=== PATIENT | female | born 1950 | race Hispanic/Latino ===

== ENCOUNTER 2021-07-29 15:38 | Emergency (ER) | payer MEDICARE ==
--- NOTE | 2021-07-29 15:47 | Emergency Department Report ---
ED General Adult HPI - General Stated complaint: BI LATERAL LEG WEAKNESS Time Seen by Provider: 07/29/21 15:46 - History of Present Illness Initial comments: Patient presented by ambulance secondary to leg weakness. She had a transient episode where her legs were weak. She had been sitting. She stood up and her legs "gave out." She thought she was having a stroke. This affected both legs. She was able to turn over, crawl on her hands and knees, and then pulled her self back up. She went to urgent care because the leg weakness. Her leg weakness had resolved. They noticed that her blood pressure was elevated and called EMS. EMS transported the patient here. Patient arrives here and states that she feels well. She does know that her blood pressure has been elevated historically. She was taken off medications a year ago because her blood pressure had normalized. She admits that she is eating salt. She has no history of chest pain. She is not having any unilateral weakness. She denies blurry vision or double vision. She has no shortness of breath. - Related Data Previous Rx's Medication Instructions Recorded Last Taken Type Amlodipine Besylate [Norvasc] 10 mg PO DAILY #60 tab 07/29/21 Unknown Rx Allergies Allergy/AdvReac Type Severity Reaction Status Date / Time No Known Allergies Allergy Verified 07/29/21 16:13 ED Review of Systems ROS: Stated complaint: BI LATERAL LEG WEAKNESS Other details as noted in HPI Comment: All other systems reviewed and negative Constitutional: denies: fever Eyes: denies: vision change ENT: denies: throat pain Respiratory: denies: cough Cardiovascular: denies: chest pain Endocrine: denies: unexplained weight loss Gastrointestinal: denies: abdominal pain Genitourinary: denies: dysuria Musculoskeletal: denies: back pain Skin: denies: rash Neurological: denies: headache Hematological/Lymphatic: denies: easy bruising ED Past Medical Hx - Past Medical History Hx Hypertension: Yes - Family History Family history: hypertension - Medications Home Medications: Home Medications Medication Instructions Recorded Confirmed Last Taken Type Amlodipine Besylate [Norvasc] 10 mg PO DAILY #60 tab 07/29/21 Unknown Rx ED Physical Exam - General Limitations: No Limitations, Other (Pulse ox noted and normal) General appearance: alert, in no apparent distress - Head Head exam: Present: atraumatic, normocephalic - Eye Eye exam: Present: normal appearance, EOMI - ENT ENT exam: Present: normal orophraynx, normal external ear exam - Neck Neck exam: Present: normal inspection. Absent: meningismus - Respiratory Respiratory exam: Present: normal lung sounds bilaterally. Absent: respiratory distress - Cardiovascular Cardiovascular Exam: Present: regular rate, normal rhythm - GI/Abdominal GI/Abdominal exam: Present: soft. Absent: distended - Extremities Exam Extremities exam: Present: normal capillary refill - Back Exam Back exam: Absent: CVA tenderness (R), CVA tenderness (L) - Neurological Exam Neurological exam: Present: alert, oriented X3, CN II-XII intact, normal gait, reflexes normal. Absent: motor sensory deficit - Psychiatric Psychiatric exam: Present: normal affect, normal mood - Skin Skin exam: Present: warm, dry ED Course Vital Signs 07/29/21 07/29/21 07/29/21 16:13 16:28 17:14 Temperature 98.2 F Pulse Rate 80 68 69 Respiratory 16 18 Rate Blood Pressure 210/88 Blood Pressure 265/109 244/107 [Right] O2 Sat by Pulse 98 97 Oximetry - Reevaluation(s) Reevaluation #1: 07/29/21 15:47 EMS was met. Old records noted. Medications ordered. Reevaluation #2: 07/29/21 17:43 Patient was discharged ED Medical Decision Making - Medical Decision Making Patient presents with transient leg weakness bilaterally. There is no concern for stroke as this was bilateral. She does not have leg weakness at this time. There is no other extremity weakness. I am not concerned for cord injury, cauda equina, or epidural abscess. She did have elevated blood pressure which is improved. It is not resolved. We have discussed dietary changes. She will be started back on Norvasc. She was on carvedilol in addition to Norvasc but we will not restart both medications at this time. She can follow with a regular physician for ongoing blood pressure management. Critical Care Time: No Critical care attestation.: If time is entered above; I have spent that time in minutes in the direct care of this critically ill patient, excluding procedure time. ED Disposition Clinical Impression: Uncontrolled hypertension, Leg weakness, bilateral Disposition: HOME / SELF CARE / HOMELESS Is pt being admited?: No Condition: Stable Instructions: Hypertension (ED), Hypertension, Adult, [id number], Managing Your Hypertension Additional Instructions: Drink plenty of water. Avoid salt. Avoid caffeine. Return for problems. Follow-up with your regular doctor. Take the medications as written. Prescriptions: Amlodipine Besylate [Norvasc] 10 mg PO DAILY #60 tab Referrals: PRIMARY CARE, [Referring] - 3-5 Days GARY BURTON MD [Staff Physician] - 3-5 Days
[2021-07-29] MEDS ORDERED: amLODIPine 5 MG TAB PO ONE (16:46)
[2021-07-29 18:19] VITALS: BP 216/84
== END 2021-07-29 18:42 | disposition home or self-care (01) ==
LOC: ED 15:38
DX: I10 Essential (primary) hypertension (principal); M62.81 Muscle weakness (generalized)
CPT/HCPCS: 99283